=== PATIENT | female | born 2000 | race African-American/Black ===

== ENCOUNTER 2022-04-08 20:35 | Emergency (ER) | payer OTHER ==
[~2022-04-08] VITALS: Ht 162.6 cm; Wt 60.7 kg
[2022-04-08 22:12] VITALS: BP 125/80
[2022-04-09] MEDS ORDERED: IBUP-2029 MT (02:11)
== END 2022-04-09 02:54 | disposition home or self-care (01) ==
LOC: ER 20:35
DX: N93.8 Other specified abnormal uterine and vaginal bleeding (principal); R10.9 Unspecified abdominal pain; V49.69XA Unspecified car occupant injured in collision with other motor vehicles in traffic accident, initial encounter; Y93.89 Activity, other specified; Y92.410 Unspecified street and highway as the place of occurrence of the external cause; R03.0 Elevated blood-pressure reading, without diagnosis of hypertension
CPT/HCPCS: 81025; 99282